=== PATIENT | male | born 1960 | race Caucasian/White ===

== ENCOUNTER 2017-11-07 11:14 | Inpatient (IN) | payer OTHER ==
[~2017-11-07] VITALS: Ht 190.5 cm; Wt 78.5 kg
[2017-11-07 15:45] VITALS: BP 112/76
[2017-11-07] MEDS ORDERED: PROVENTIL,2.5 MG/3 M IH (16:14)
[2017-11-07] MEDS ORDERED: XANAX1 MG PO (16:24)
[2017-11-07] MEDS ORDERED: ASPIRIN81 M2 PO (16:25)
[2017-11-07] MEDS ORDERED: FLEXERIL10 MG PO (16:29)
[2017-11-07] MEDS ORDERED: CARDURA1 M1 PO (16:31)
[2017-11-07] MEDS ORDERED: LEXAPRO20 MG PO (16:32)
[2017-11-07] MEDS ORDERED: HEPARIN SO5000 UNIT4 SQ (16:34)
[2017-11-07] MEDS ORDERED: SEROQUEL12.5 MG PO (16:35)
[2017-11-07] MEDS ORDERED: ATIVAN1 MG PO (16:37)
[2017-11-07] MEDS ORDERED: ZESTRIL40 MG PO (16:38)
[2017-11-07] MEDS ORDERED: VITAMIN B-1100 MG PO (16:38)
[2017-11-07] MEDS ORDERED: KONSYL PSYLLIU3.4 GM PO (16:39)
[2017-11-07] MEDS ORDERED: ACETAMINOPHEN325 M1 PO (16:44)
[2017-11-07] MEDS ORDERED: NYSTATIN15 GM TP (17:45)
[2017-11-08 00:19] VITALS: BP 116/77
[2017-11-08 04:59] VITALS: BP 132/76
[2017-11-08 07:09] LABS: HEMOGLOBIN 11.9 G/DL (12.5-16.6); MCH 27.9 PG (29.0-34.0); MCHC 33.1 G/DL (30.0-36.0); MCV 84.3 FL (86-99); PLATELET COUNT 188 K/uL (156-360); RBC DIS.WIDTH-CV 13.1 % (11.8-14.6); RBC DIS.WIDTH-SD 40.1 % (39-53); RED BLOOD COUNT 4.27 M/uL (4.00-5.50); WHITE BLOOD COUNT 2.9 K/uL (4.1-10.2)
[2017-11-08 07:28] LABS: ALBUMIN 3.3 G/DL (3.2-4.8); ALKALINE PHOSPHATASE 73 IU/L (3-129); ALT (GPT) 142 IU/L (3-49); AST (GOT) 48 IU/L (2-34); CHLORIDE 102 MEQ/L (99-109); CREATININE 0.5 MG/DL (0.6-1.3); GFR ESTIMATE (CALCULATED) > 59 mL/min/ (58.99-99999); GLUCOSE 124 mg/dL (70-99); POTASSIUM 4.1 MEQ/L (3.7-5.4); SODIUM 140 MEQ/L (136-147); TOTAL BILIRUBIN 0.7 MG/DL (0.0-1.0); TOTAL PROTEIN 6.1 G/DL (6.4-8.3); UREA NITROGEN (BUN) 20 mg/dL (9-23)
[2017-11-08 15:23] VITALS: BP 127/80
[2017-11-09 04:42] VITALS: BP 119/80
[2017-11-09 15:44] VITALS: BP 119/74
[2017-11-10 05:05] VITALS: BP 115/69
[2017-11-10 15:18] VITALS: BP 120/75
[2017-11-11 05:26] VITALS: BP 136/75
[2017-11-11 15:14] VITALS: BP 124/71
[2017-11-12 05:47] LABS: HEMATOCRIT 35.5 % (38.0-50.0); MCHC 33.8 G/DL (30.0-36.0); MCV 82.8 FL (86-99); PLATELET COUNT 242 K/uL (156-360); RBC DIS.WIDTH-CV 13.3 % (11.8-14.6); RED BLOOD COUNT 4.29 M/uL (4.00-5.50); WHITE BLOOD COUNT 4.8 K/uL (4.1-10.2)
[2017-11-12 06:04] VITALS: BP 116/75
[2017-11-12 06:16] LABS: CHLORIDE 101 MEQ/L (99-109); CREATININE 0.5 MG/DL (0.6-1.3); GFR ESTIMATE (CALCULATED) > 59 mL/min/ (58.99-99999); GLUCOSE 97 mg/dL (70-99); SODIUM 138 MEQ/L (136-147); UREA NITROGEN (BUN) 17 mg/dL (9-23)
[2017-11-12 15:11] VITALS: BP 122/70
[2017-11-13 05:38] VITALS: BP 135/86
[2017-11-13 15:45] VITALS: BP 119/67
[2017-11-14 05:31] VITALS: BP 118/61
[2017-11-14 07:09] LABS: HEMATOCRIT 34.7 % (38.0-50.0); HEMOGLOBIN 11.7 G/DL (12.5-16.6); MCH 28.1 PG (29.0-34.0); MCHC 33.7 G/DL (30.0-36.0); MCV 83.2 FL (86-99); PLATELET COUNT 244 K/uL (156-360); RBC DIS.WIDTH-CV 13.2 % (11.8-14.6); RBC DIS.WIDTH-SD 40.5 % (39-53); RED BLOOD COUNT 4.17 M/uL (4.00-5.50); WHITE BLOOD COUNT 3.4 K/uL (4.1-10.2)
[2017-11-14 07:33] LABS: ALBUMIN 3.2 G/DL (3.2-4.8); ALKALINE PHOSPHATASE 65 IU/L (3-129); ALT (GPT) 61 IU/L (3-49); AST (GOT) 23 IU/L (2-34); CHLORIDE 102 MEQ/L (99-109); CREATININE 0.5 MG/DL (0.6-1.3); GFR ESTIMATE (CALCULATED) > 59 mL/min/ (58.99-99999); GLUCOSE 101 mg/dL (70-99); POTASSIUM 4.3 MEQ/L (3.7-5.4); SODIUM 138 MEQ/L (136-147); TOTAL BILIRUBIN 0.6 MG/DL (0.0-1.0); TOTAL PROTEIN 5.9 G/DL (6.4-8.3); UREA NITROGEN (BUN) 13 mg/dL (9-23)
[2017-11-14 14:40] VITALS: BP 112/61
[2017-11-15 05:46] VITALS: BP 110/57
[2017-11-16 04:27] VITALS: BP 107/54
[2017-11-16 15:51] VITALS: BP 110/69
[2017-11-17 05:11] VITALS: BP 119/71
[2017-11-17 15:48] VITALS: BP 101/59
[2017-11-18 05:26] VITALS: BP 111/67
[2017-11-18 15:56] VITALS: BP 106/60
[2017-11-19 05:40] VITALS: BP 128/69
[2017-11-19] MEDS ORDERED: CARDURA1 M1 PO (10:42)
[2017-11-19] MEDS ORDERED: SEROQUEL12.5 MG PO (10:42)
[2017-11-19] MEDS ORDERED: SANTYL30 GM TP (10:42)
[2017-11-19] MEDS ORDERED: LISINOPRIL20 MG PO (10:42)
[2017-11-19] MEDS ORDERED: THERAGRAN1 TABLET PO (10:42)
[2017-11-19] MEDS ORDERED: LEXAPRO20 MG PO (10:42)
[2017-11-19] MEDS ORDERED: Tylenol GT (10:42)
[2017-11-19 15:09] VITALS: BP 119/74
[2017-11-20 14:26] VITALS: BP 115/64
[2017-11-20 15:29] VITALS: BP 122/69
[2017-11-20 16:51] LABS: BASOPHIL (%) 0.9 % (0-1); EOSINOPHIL (%) 2.8 % (0-5); EOSINOPHIL COUNT 0.1 K/uL (0-0.3); HEMATOCRIT 38.2 % (38.0-50.0); HEMOGLOBIN 12.6 G/DL (12.5-16.6); IMMATURE GRANULOCYTE (%) 0.2 % (0.0-0.7); LYMPHOCYTE (%) 36.5 % (15-42); LYMPHOCYTE COUNT 1.5 K/uL (1.0-2.8); MCH 27.8 PG (29.0-34.0); MCV 84.1 FL (86-99); MONOCYTE (%) 15.4 % (3-12); MONOCYTE COUNT 0.7 K/uL (0-0.8); NEUTROPHIL (%) 44.2 % (45-76); NEUTROPHIL COUNT 1.9 K/uL (1.8-6.4); PLATELET COUNT 284 K/uL (156-360); RBC DIS.WIDTH-CV 13.5 % (11.8-14.6); RBC DIS.WIDTH-SD 41.8 % (39-53); RED BLOOD COUNT 4.54 M/uL (4.00-5.50); WHITE BLOOD COUNT 4.2 K/uL (4.1-10.2)
[2017-11-20 17:18] LABS: ALKALINE PHOSPHATASE 77 IU/L (3-129); ALT (GPT) 45 IU/L (3-49); AST (GOT) 21 IU/L (2-34); CHLORIDE 100 MEQ/L (99-109); CREATININE 0.5 MG/DL (0.6-1.3); GFR ESTIMATE (CALCULATED) > 59 mL/min/ (58.99-99999); GLUCOSE 82 mg/dL (70-99); POTASSIUM 4.6 MEQ/L (3.7-5.4); SODIUM 137 MEQ/L (136-147); UREA NITROGEN (BUN) 16 mg/dL (9-23)
[2017-11-20 17:19] LABS: TOTAL BILIRUBIN 0.4 MG/DL (0.0-1.0); TOTAL PROTEIN 6.9 G/DL (6.4-8.3)
[2017-11-21 05:01] VITALS: BP 113/69
[2017-11-21 15:16] VITALS: BP 107/68
[2017-11-21] MEDS ORDERED: XANAX1 MG PO (16:48)
[2017-11-21] MEDS ORDERED: ATIVAN1 MG PO (16:48)
== END 2017-11-21 15:55 | DRG 57 ==
LOC: 3WEST 11:14 → ENPENDDIS 11-26
PROVIDERS: Family Medicine; Physical Medicine & Rehabilitation Pain Medicine; Psychiatry & Neurology Neurology
PROC: F07M0ZZ Range of Motion and Joint Mobility Treatment of Musculoskeletal System - Whole Body (ICD-10-PCS; principal; 2017-11-07)
DX: I69.391 Dysphagia following cerebral infarction (principal); R13.10 Dysphagia, unspecified; Z93.1 Gastrostomy status; I69.320 Aphasia following cerebral infarction; I69.398 Other sequelae of cerebral infarction; R26.9 Unspecified abnormalities of gait and mobility; R41.82 Altered mental status, unspecified; T81.89XD Other complications of procedures, not elsewhere classified, subsequent encounter; Y83.8 Other surgical procedures as the cause of abnormal reaction of the patient, or of later complication, without mention of misadventure at the time of the procedure; G89.29 Other chronic pain; M54.5 Low back pain; R73.9 Hyperglycemia, unspecified; I10 Essential (primary) hypertension; F41.9 Anxiety disorder, unspecified; F32.9 Major depressive disorder, single episode, unspecified; E78.5 Hyperlipidemia, unspecified; Z98.1 Arthrodesis status
CPT/HCPCS: 74230; 80048; 80053; 85025; 85027; 92507 GN; 92523 GN; 92526 GN; 92611 GN; 93306; 97110 GO; 97530 GP; 99202; G0515 GO; J1644